=== PATIENT | male | born 1990 | race Caucasian/White ===

== ENCOUNTER 2018-08-31 22:49 | Emergency (ER) | payer MEDICAID ==
[~2018-08-31] VITALS: Ht 188 cm; Wt 97.5 kg
--- NOTE | 2018-08-31 23:11 | NUR ---
Dr. Hernandez at bedside for MSE.
[2018-08-31] MEDS ORDERED: CEFAZOLIN 1 G VIAL ONE (23:25)
[2018-08-31] MEDS ORDERED: KETOROLAC TROMETHAMINE 30 MG INJ ONE (23:26)
[2018-08-31] MEDS ORDERED: SULFAMETH/TRIMETH 800/160 MG TABLET ONE (23:26)
[2018-08-31] MEDS ORDERED: SULFAMETH/TRIMETH 800/160 MG TABLET PO ONE (23:30)
[2018-08-31] MEDS ORDERED: CEFAZOLIN 1 G VIAL IM ONE (23:30)
[2018-08-31] MEDS ORDERED: KETOROLAC TROMETHAMINE 30 MG INJ IM ONE (23:30)
--- NOTE | 2018-08-31 23:36 | NUR ---
Patient discharged to home in stable conditon. Written and verbal after care instructions given. Patient verbalizes understanding of instructions. Pt ambulated out of ER with steady gait, no acute signs of distress, VSS, all belongings taken.
[2018-08-31 23:39] VITALS: BP 150/100
== END 2018-08-31 23:39 | disposition home or self-care (01) ==
LOC: ER 22:49
DX: L02.416 Cutaneous abscess of left lower limb (principal)
CPT/HCPCS: 96372 ×2; 99283; J0690; J1885; A4663

== ENCOUNTER 2018-09-04 23:42 | Emergency (ER) | payer MEDICAID ==
[~2018-09-04] VITALS: Ht 188 cm; Wt 97.5 kg
[2018-09-05] MEDS ORDERED: NAPROXEN 375 MG TABLET (00:02)
[2018-09-05] MEDS ORDERED: SULFAMETHOXAZOLE-TMP DS TABLET (00:02)
[2018-09-05] MEDS ORDERED: CEPHALEXIN 500 MG CAPSULE (00:02)
--- NOTE | 2018-09-05 00:20 | NUR ---
Patient discharged to home in stable conditon. Written and verbal after care instructions given. Patient verbalizes understanding of instructions.
== END 2018-09-05 00:22 | disposition home or self-care (01) ==
LOC: ER 23:45
DX: L03.116 Cellulitis of left lower limb (principal); Z79.899 Other long term (current) drug therapy
CPT/HCPCS: A4663